=== PATIENT | male | born 1980 | race African-American/Black ===

== ENCOUNTER 2023-05-21 13:55 | Emergency (ER) | payer OTHER ==
[~2023-05-21] VITALS: Ht 185.4 cm; Wt 67.0 kg
[2023-05-21] VITALS (15 sets, daily range): BP systolic 152–180; BP diastolic 93–124
[2023-05-21 14:42] LABS: BASO% 0.2 % (0-3); EOS% 0.3 % (0-8); HEMATOCRIT 41.7 % (39.0-50.0); HEMOGLOBIN 13.8 g/dl (14.0-18.0); IMMATURE GRANULOCYTES 0.2 % (0.0-5.0); LYMPH% 9.2 % (15-41); MEAN CELL VOLUME 99.5 fL CALC (80.0-100.0); MEAN CORPUSCULAR HGB 32.9 pG CALC (26.0-32.0); MEAN CORPUSCULAR HGB CONC 33.1 g/dL CAL (32.0-36.0); MONO% 6.2 % (2-13); NEUT# 5.12 thou/uL (1.82-7.42); NEUT% 83.9 % (42-76); RED BLOOD COUNT 4.19 mill/uL (4.70-6.10); RED CELL DISTRI WIDTH 13.5 % (11.5-15.5)
[2023-05-21 14:54] LABS: ALBUMIN 5.6 g/dL (3.2-5.0); ALKALINE PHOSPHATASE 86 u/l (38-126); ANION GAP 22 (6-22 (CALC)); BILIRUBIN, TOTAL 3.5 mg/dL (0.2-1.3); BUN 14 mg/dL (9-20); BUN/CREATININE RATIO 15 (12-20 (CALC)); CARBON DIOXIDE 28 mmol/l (22-30); CHLORIDE 89 mmol/l (95-108); CREATININE 0.9 mg/dL (0.7-1.3); GFR FOR AFR.AMER. > 60 ML/MIN (>=60 (CALC)); GFR OTHER RACES > 60 ML/MIN (>=60 (CALC)); LIPASE 192 u/l (23-300); POTASSIUM 4.2 mmol/l (3.5-5.1); SGOT/AST 123 u/l (17-59); SODIUM 135 mmol/l (137-146); TOTAL PROTEIN 9.4 g/dL (6.3-8.2)
[2023-05-21 16:49] LABS: URINE BLOOD DIPSTICK Trace-intact (NEGATIVE); URINE GLUCOSE - DIPSTICK Negative (NEGATIVE); URINE KETONE >=160 mg/dL (NEGATIVE); URINE LEUK ESTERASE Negative (NEGATIVE); URINE NITRITE - DIPSTICK Negative (Negative); URINE PROTEIN - DIPSTICK 100 mg/dL (NEG-TRACE)
[2023-05-21 16:50] LABS: URINE COLOR Yellow; URINE RBC 0-2 RBC/hpf (0-5); URINE WBC 0-2 WBC/hpf (0-5)
[2023-05-21] MEDS ORDERED: COZAAR100 MG PO (16:55)
== END 2023-05-21 17:14 | disposition home or self-care (01) | DRG 638 ==
LOC: ED 13:55
PROVIDERS: Emergency Medicine
DX: E11.65 Type 2 diabetes mellitus with hyperglycemia (principal); I16.9 Hypertensive crisis, unspecified; I10 Essential (primary) hypertension; T38.3X6A Underdosing of insulin and oral hypoglycemic [antidiabetic] drugs, initial encounter; T46.5X6A Underdosing of other antihypertensive drugs, initial encounter; Z91.128 Patient's intentional underdosing of medication regimen for other reason
CPT/HCPCS: Q9967